=== PATIENT | male | born 1975 | race Hispanic/Latino ===

== ENCOUNTER 2017-01-07 10:28 | Emergency (ER) | payer BC, OTHER ==
--- NOTE | 2017-01-07 12:56 | Emergency Department Report ---
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 - Exam Vital Signs: Vital Signs 01/07/17 10:44 Temperature 97.7 F Pulse Rate 106 H Respiratory 18 Rate Blood Pressure 151/99 O2 Sat by Pulse 96 Oximetry Physical Exam: GENERAL: The patient is well-developed and well-nourished. Patient is in NAD. HENT: Normocephalic. Atraumatic. Patient has moist mucous membranes. Throat: No erythema, swelling or exudates. Ears:Tympanic membranes pearly ys ,intact , and free of exudate and erythema . EYES: Extraocular motions are intact, PERRL NECK: Supple. No meningitic signs are noted. There is no adenopathy noted. CHEST/LUNGS: Clear to auscultation bilaterally. No wheezing, rales or rhonchi noted. There is no respiratory distress noted. HEART/CARDIOVASCULAR: Regular rate and rhythm. Normal S1 S2. No murmurs, rubs , clicks, or gallops. ABDOMEN: Abdomen is soft, nontender.. Bowel sounds normoactive. There is no abdominal distention. Negative rebound tenderness. : Deferred. SKIN: There is no rash. There is no edema. There is no diaphoresis.Normal skin turgor NEURO: The patient is A&Ox3. The patient has no focal neurologic deficits. MUSCULOSKELETAL: There is no tenderness or deformity. There is no limitation range of motion. posture erect.Spine aligned,no deformities. PSYCH: Pt has appropriate mood and affect. MSE screening note: Focused history and physical exam performed. Due to findings the following was ordered: ED Medical Decision Making - Medical Decision Making low back pain pt was evaluate by primary care doctor and told had pinch nerve to lower back x 5 days pt will follow with primary care in the am ED Disposition for MSE Clinical Impression: Low back pain Qualifiers: Chronicity: acute Back pain laterality: bilateral Sciatica presence: without sciatica Qualified Code(s): M54.5 - Low back pain Is pt being admited?: No Does the pt Need Aspirin: No Condition: Stable Instructions: Lumbar Radiculopathy (ED) Additional Instructions: follow up with primary care doctor on 01/08/2017 Prescriptions: HYDROcodone/APAP 10-325 [[place] 10/325] 1 each PO Q6HR PRN #10 tablet PRN Reason: Pain Referrals: ARACELI MCDONOUGH MD [Primary Care Provider] - 3-5 Days Time of Disposition: 13:00
[2017-01-07 13:13] VITALS: BP 150/92
== END 2017-01-07 13:12 | disposition home or self-care (01) ==
LOC: ED 10:28
DX: M54.5 Low back pain (principal)
CPT/HCPCS: 99282

== ENCOUNTER 2017-01-12 13:39 | Outpatient (CLI) | payer OTHER | END 2017-01-12 13:40 | disposition home or self-care (01) | LOC: LABHHL 13:39 | PROVIDERS: ATTEND Neurological Surgery | DX: M51.26 Other intervertebral disc displacement, lumbar region (principal) | CPT/HCPCS: 88304 ==

== ENCOUNTER 2018-02-14 18:36 | Emergency (ER) | payer OTHER ==
[2018-02-14] MEDS ORDERED: DECADRON IM ONE (21:04)
--- NOTE | 2018-02-14 21:10 | Emergency Department Report ---
ED Back Pain/Injury HPI - General Chief Complaint: Back Pain/Injury Stated Complaint: BACK PAIN CAN'T FEEL LEFT LEG Time Seen by Provider: 02/14/18 21:04 Source: patient Limitations: No Limitations - History of Present Illness MD Complaint: back pain -: Gradual, week(s) (several ) Similar Symptoms Previously: Yes Place: home Radiation: left leg Severity: severe Severity scale (0 -10): 8 Quality: aching Consistency: constant Improves With: none Worsens With: sitting upright Context: turning/twisting Associated Symptoms: denies other symptoms Treatments Prior to Arrival: acetaminophen, prescription analgesics - Related Data Previous Rx's Medication Instructions Recorded Last Taken Type HYDROcodone/APAP 5-325 [[place] 1 each PO Q6HR PRN #14 tablet 10/01/14 Unknown Rx 5-325 mg TAB] Ibuprofen [Motrin 800 MG tab] 800 mg PO TID PRN #20 tablet 10/01/14 Unknown Rx Azithromycin [Zithromax Z-MITZI] 250 mg PO DAILY #6 tablet 01/04/15 Unknown Rx Ciprofloxacin HCl [Cipro] 500 mg PO Q12H #20 tab 01/04/15 Unknown Rx Promethazine /Codeine 5 ml PO Q6H PRN #120 ml 01/04/15 Unknown Rx [Phenergan/Codeine 6.25-10 mg/5 ml] Phenazopyridine [Pyridium] 100 mg PO TID #6 tab 08/05/15 Unknown Rx HYDROcodone/APAP 10-325 [[place] 1 each PO Q6HR PRN #10 tablet 01/07/17 Unknown Rx 10/325] Lidocaine [Lidoderm] 1 each TP Q12HR PRN #12 adh..patch 02/14/18 Unknown Rx Allergies Allergy/AdvReac Type Severity Reaction Status Date / Time Penicillins Allergy Seizure Verified 05/10/14 21:51 ED Review of Systems ROS: Stated complaint: BACK PAIN CAN'T FEEL LEFT LEG Other details as noted in HPI Constitutional: denies: chills, fever Eyes: denies: eye pain, eye discharge, vision change ENT: denies: ear pain, throat pain Respiratory: denies: cough, shortness of breath, wheezing Cardiovascular: denies: chest pain, palpitations Endocrine: no symptoms reported Gastrointestinal: denies: abdominal pain, nausea, diarrhea Genitourinary: denies: urgency, dysuria Musculoskeletal: back pain. denies: joint swelling, arthralgia Skin: denies: rash, lesions Neurological: denies: headache, weakness, paresthesias Psychiatric: denies: anxiety, depression Hematological/Lymphatic: denies: easy bleeding, easy bruising ED Past Medical Hx - Past Medical History Hx Hypertension: Yes Additional medical history: chronic back pain/sciatica - Surgical History Additional Surgical History: Knee and hand surgery. hernia repair///back surg - Social History Smoking Status: Never Smoker Substance Use Type: None - Medications Home Medications: Home Medications Medication Instructions Recorded Confirmed Last Taken Type HYDROcodone/APAP 5-325 [[place] 1 each PO Q6HR PRN #14 tablet 10/01/14 Unknown Rx 5-325 mg TAB] Ibuprofen [Motrin 800 MG tab] 800 mg PO TID PRN #20 tablet 10/01/14 Unknown Rx Azithromycin [Zithromax Z-MITZI] 250 mg PO DAILY #6 tablet 01/04/15 Unknown Rx Ciprofloxacin HCl [Cipro] 500 mg PO Q12H #20 tab 01/04/15 Unknown Rx Promethazine /Codeine 5 ml PO Q6H PRN #120 ml 01/04/15 Unknown Rx [Phenergan/Codeine 6.25-10 mg/5 ml] Phenazopyridine [Pyridium] 100 mg PO TID #6 tab 08/05/15 Unknown Rx HYDROcodone/APAP 10-325 [[place] 1 each PO Q6HR PRN #10 tablet 01/07/17 Unknown Rx 10/325] Lidocaine [Lidoderm] 1 each TP Q12HR PRN #12 adh..patch 02/14/18 Unknown Rx ED Physical Exam - General Limitations: No Limitations General appearance: alert, in no apparent distress - Head Head exam: Present: atraumatic, normocephalic - Eye Eye exam: Present: normal appearance - ENT ENT exam: Present: mucous membranes moist - Neck Neck exam: Present: normal inspection - Respiratory Respiratory exam: Present: normal lung sounds bilaterally. Absent: respiratory distress - Cardiovascular Cardiovascular Exam: Present: regular rate, normal rhythm. Absent: systolic murmur, diastolic murmur, rubs, gallop - GI/Abdominal GI/Abdominal exam: Present: soft, normal bowel sounds - Rectal Rectal exam: Present: deferred - Extremities Exam Extremities exam: Present: normal inspection - Back Exam Back exam: Present: tenderness - Neurological Exam Neurological exam: Present: alert, oriented X3 - Psychiatric Psychiatric exam: Present: normal affect, normal mood - Skin Skin exam: Present: warm, dry, intact, normal color. Absent: rash ED Course Vital Signs 02/14/18 18:41 Temperature 98 F Pulse Rate 89 Respiratory 18 Rate Blood Pressure 136/88 O2 Sat by Pulse 100 Oximetry ED Medical Decision Making - Medical Decision Making Cdx: Lumbar sacral strain ddx: Slipped disk, spinal canal stenosis I will give pt IM shot of decadron and I will give pt rx for lidocaine patches and will have pt f/u with his PCP. Additional verbal discharge instructions were given. Patient agrees with discharge. Critical care attestation.: If time is entered above; I have spent that time in minutes in the direct care of this critically ill patient, excluding procedure time. ED Disposition Clinical Impression: Lower back pain Qualifiers: Chronicity: chronic Back pain laterality: midline Sciatica presence: with sciatica Sciatica laterality: sciatica of left side Qualified Code(s): M54.42 - Lumbago with sciatica, left side; G89.29 - Other chronic pain Disposition: DC-01 TO HOME OR SELFCARE Is pt being admited?: No Does the pt Need Aspirin: No Condition: Stable Instructions: Low Back Strain (ED), Lumbar Radiculopathy (ED) Prescriptions: Lidocaine [Lidoderm] 1 each TP Q12HR PRN #12 adh..patch PRN Reason: Pain Referrals: PRIMARY CARE,MD [Primary Care Provider] - 3-5 Days
[2018-02-15 00:16] VITALS: BP 132/86
== END 2018-02-14 21:29 | disposition home or self-care (01) ==
LOC: ED 18:36
DX: M54.42 Lumbago with sciatica, left side (principal); G89.29 Other chronic pain
CPT/HCPCS: 96372; 99282; J1100

== ENCOUNTER 2021-04-06 12:32 | Emergency (ER) | payer OTHER ==
--- NOTE | 2021-04-06 13:17 | Event Note ---
ED Screening Note Date of service: 04/06/21 Time: 13:15 ED Screening Note: 45-year-old male patient with recent history of diverticulitis presents to the emergency department with complaints of chest pain, shortness of breath, and melena. Patient was recently hospitalized for perforated diverticulitis. He did not undergo operative intervention. Today was the first day he noticed black stools since his hospitalization, prompting him to return to the emergency department. He is not anticoagulated. Chest pain and shortness of breath began after his hospital admission. Chest pain is worse with deep inhalation. No prior history of venous thromboembolism. General: Awake, appropriately interactive, no acute distress. Neck: Supple. Full range of motion intact. Cardiovascular: Normal peripheral perfusion. Pulmonary: No respiratory distress. Patient is speaking normally without use of accessory muscles. Skin: No apparent rashes or lesions. Neurological: No facial asymmetry. Speech is clear. Follows commands. Patient is alert and oriented. Musculoskeletal: Moves all four extremities spontaneously with normal range of motion. Psych: Cooperative. Appropriate mood and affect. Initial labs ordered; decision to pursue further diagnostic work-up (i.e. imaging studies) deferred to additional ED providers. I have greeted and performed a focused rapid initial assessment of this patient. A comprehensive ED assessment and evaluation of the patient, analysis of all test results, and completion of the medical decision-making process will be conducted by additional ED providers. This initial assessment/diagnostic orders/clinical plan/treatment(s) is/are subject to change based on patients health status, clinical progression and re-assessment. Further treatment and workup at subsequent clinical provider's discretion. Patient/guardian urged not to elope from the ED as their condition may be serious if not clinically assessed and managed.
[2021-04-06 13:39] LABS: Alanine Aminotransferase 15 units/L (7-56); Albumin 4.6 g/dL (3.9-5); BUN/Creatinine Ratio 13; Blood Urea Nitrogen 12 mg/dL (9-20); Calcium 9.7 mg/dL (8.4-10.2); Hemolysis Index 8
--- NOTE | 2021-04-06 13:43 | XRay Report ---
XR chest routine 2V INDICATION / CLINICAL INFORMATION: chest pain/SOB. COMPARISON: None available. FINDINGS: SUPPORT DEVICES: None. HEART /PULMONARY VASCULATURE: No significant abnormality. LUNGS / PLEURA: No significant pulmonary or pleural abnormality. No pneumothorax. ADDITIONAL FINDINGS: No significant additional findings. IMPRESSION: 1. No acute findings. Signer Name: Evan Garcia MD Signed: 04/06/2021 1:38 PM Workstation Name: [id number]
[2021-04-06 13:44] LABS: Basophils % (Auto) 0.4 % (0.0-1.8); Eosinophils # (Auto) 0.1 K/mm3 (0.0-0.4); Eosinophils % (Auto) 1.3 % (0.0-4.3); Hematocrit 46.4 % (35.5-45.6); Hemoglobin 15.9 gm/dl (11.8-15.2); Lymphocytes # (Auto) 2.4 K/mm3 (1.2-5.4); Lymphocytes % (Auto) 41.4 % (13.4-35.0); Mean Corpuscular HGB Conc 34 % (32-34); Mean Corpuscular Volume 90 fl (84-94); Monocytes # (Auto) 0.6 K/mm3 (0.0-0.8); Monocytes % (Auto) 10.6 % (0.0-7.3); Platelet Count 300 K/mm3 (140-440); Red Blood Count 5.14 M/mm3 (3.65-5.03); Red Cell Distribution Width 13.7 % (13.2-15.2)
[2021-04-06 13:45] LABS: Bilirubin,Urine NEG (Negative); Blood,Urine NEG (Negative); Color,Urine Yellow (Yellow); Protein,Urine <15 mg/dL mg/dL (Negative); Urobilinogen,Urine < 2.0 mg/dL (<2.0); WBC,Urine < 1.0 /HPF (0.0-6.0)
[2021-04-06 14:44] LABS: INR 1.03 (0.87-1.13)
[2021-04-06 14:45] LABS: Partial Thromboplastin Time 31.2 Sec. (24.2-36.6)
[2021-04-06] MEDS ORDERED: MORPHINE 2 MG/1 ML INJ IV ONE (15:25)
[2021-04-06] MEDS ORDERED: LACTATED RINGERS 1,000 ML IV ONE (15:25)
[2021-04-06] MEDS ORDERED: FAMOTIDINE 20 MG/2 ML INJ IV ONE (15:25)
--- NOTE | 2021-04-06 15:26 | Emergency Department Report ---
<RAH CALLOWAY - Last Filed: 04/06/21 21:37> ED General Adult HPI - General Chief complaint: Abdominal Pain Stated complaint: BLACK STOOL/SOB/PAIN IN CHEST AREA Time Seen by Provider: 04/06/21 13:59 - Related Data Previous Rx's Medication Instructions Recorded Last Taken Type Promethazine /Codeine 5 ml PO Q6H PRN #120 ml 01/04/15 Unknown Rx [Phenergan/Codeine 6.25-10 mg/5 ml] Phenazopyridine [Pyridium] 100 mg PO TID #6 tab 08/05/15 Unknown Rx Ciprofloxacin HCl [Ciprofloxacin 750 mg PO DAILY #5 tablet 03/17/21 Unknown Rx TAB] metroNIDAZOLE [Flagyl] 500 mg PO Q8HR #14 tablet 03/17/21 Unknown Rx Allergies Allergy/AdvReac Type Severity Reaction Status Date / Time Penicillins Allergy Seizure Verified 05/10/14 21:51 ED Past Medical Hx - Medications Home Medications: Home Medications Medication Instructions Recorded Confirmed Last Taken Type Promethazine /Codeine 5 ml PO Q6H PRN #120 ml 01/04/15 Unknown Rx [Phenergan/Codeine 6.25-10 mg/5 ml] Phenazopyridine [Pyridium] 100 mg PO TID #6 tab 08/05/15 Unknown Rx Ciprofloxacin HCl [Ciprofloxacin 750 mg PO DAILY #5 tablet 03/17/21 Unknown Rx TAB] metroNIDAZOLE [Flagyl] 500 mg PO Q8HR #14 tablet 03/17/21 Unknown Rx ED Medical Decision Making - Lab Data Result diagrams: 04/06/21 12:56 04/06/21 12:56 ED Disposition Clinical Impression: Lower abdominal pain, Nonspecific chest pain Disposition: DC-01 TO HOME OR SELFCARE Is pt being admited?: No Does the pt Need Aspirin: No Condition: Good Instructions: Nonspecific Chest Pain, Adult Additional Instructions: Do not take metformin medication for the next 2 days, if patient takes this medication. Do not take Motrin, ibuprofen, Naprosyn, Aleve, avoid consumption of alcohol, smoke products, heavy and spicy foods. Patient may take Tylenol [id number], 650 mg by mouth, every 4-6 hours as needed for pain, maximum daily dose of Tylenol to not exceed 3 g per 24 hours. Recommend the patient follow-up with a primary care doctor within the next week. Recommend that patient follow-up with a radiotelegraph operator within the next 3 days. Please have a primary care doctor contact medical records department to follow- up on nonemergent incidental findings, and to obtain copies of CT scan reports, and laboratory studies. For the patient's convenience, we have listed a number of local primary care doctors and/or cardiology groups. Please return to the emergency room right away with new pain, worsened pain, migration of pain, projectile vomiting, change in mental status, confusion, inability to tolerate liquid feeds, new, worsened or different symptoms not present on the initial emergency room evaluation. Referrals: LAUREN PERSON MD [Staff Physician] - 3-5 Days [facility] [Provider Group] - 3-5 Days [facility] [Provider Group] - 3-5 Days Forms: Work/School Release Form(ED) Time of Disposition: 21:38 <LEILA ADAMES - Last Filed: 04/07/21 17:26> ED General Adult HPI - General PUI?: No Source: patient, RN notes reviewed, old records reviewed Mode of arrival: Ambulatory Limitations: No Limitations - History of Present Illness Initial comments: The patient was evaluated in the emergency department for symptoms described in the history of present illness. He/she was evaluated in the context of the global COVID-19 pandemic, which necessitated consideration that the patient might be at risk for infection with the virus that causes COVID-19. Institutional protocols and algorithms that pertain to the evaluation of patients at risk for COVID-19 are in a state of rapid change based on information released by regulatory bodies including the CDC and federal and state organizations. These policies and algorithms were followed during the patient's care in the emergency department. Please note that these policies, procedures and recommendations changed on a rapid basis. During the history and physical examination, I am chaperoned by Ms. Felicitas Troy This is a 45-year-old gentleman. I have evaluated this patient in the past. I admitted this patient to the medical service recently for perforated sigmoid diverticulitis. It appears that he convalesced well. Today, the patient presents to the ER with a complaint of intermittent black stool, lower abdominal cramping, left-sided chest tightness and pressure, and i ntermittent shortness of breath. The patient denies headache, neck pain, vomiting, diaphoresis, hematemesis, bright red blood per rectum. He reports left-sided chest pressure does not radiate to the back, arms or neck, is intermittent, nonexertional, and not associate with vomiting or diaphoresis. Is been going on for a few days. He does not have exacerbating or relieving factors that he is aware of. No posterior leg pain or leg swelling. It sometimes gets worse with deep inspiration. He reports his lower abdominal pressure is most prominent in the suprapubic and right lower quadrant region, and occasionally radiates to his right testicle. He reports that he does not take vitamins containing compounds, and he does not take anticoagulants, or NSAIDs. Denies Covid symptomatology. -: Gradual, days(s) Location: chest, abdomen Radiation: non-radiation Quality: aching Consistency: intermittent Improves with: none Worsens with: none ED Review of Systems ROS: Stated complaint: BLACK STOOL/SOB/PAIN IN CHEST AREA Other details as noted in HPI Constitutional: denies: fever Eyes: denies: eye discharge ENT: denies: congestion Respiratory: shortness of breath. denies: cough Cardiovascular: chest pain Gastrointestinal: abdominal pain. denies: hematemesis, hematochezia Genitourinary: as per HPI, other (Testicular pressure). denies: dysuria Musculoskeletal: denies: myalgia Neurological: weakness ED Past Medical Hx - Past Medical History Hx Hypertension: Yes Hx Congestive Heart Failure: No Hx Diabetes: No Hx Asthma: No Hx COPD: No Additional medical history: chronic back pain/sciatica - Surgical History Additional Surgical History: Knee and hand surgery. hernia repair///back surg - Social History Smoking Status: Never Smoker Substance Use Type: None ED Physical Exam - General Limitations: No Limitations General appearance: alert, in no apparent distress - Head Head exam: Present: atraumatic, normocephalic - Eye Eye exam: Present: normal appearance, EOMI. Absent: nystagmus - ENT ENT exam: Present: normal exam, normal orophraynx, mucous membranes moist, normal external ear exam - Neck Neck exam: Present: normal inspection, full ROM. Absent: tenderness, meningismus - Respiratory Respiratory exam: Present: normal lung sounds bilaterally. Absent: respiratory distress, wheezes, rales, rhonchi, stridor, decreased breath sounds - Cardiovascular Cardiovascular Exam: Present: regular rate, normal rhythm, normal heart sounds. Absent: bradycardia, tachycardia, irregular rhythm, systolic murmur, diastolic murmur, rubs, gallop - GI/Abdominal GI/Abdominal exam: Present: soft, tenderness (Suprapubic and right lower quadrant tenderness). Absent: distended, guarding, rebound, rigid, pulsatile mass - Rectal Rectal exam: Present: normal inspection, normal rectal tone, heme (-) stool, other (Chaperoned by Claudia Troy). Absent: black stool, bloody stool, fecal impaction, hemorrhoids, mass - exam: Present: normal inspection, other (There is normal testicular lie. There is normal cremasteric reflex. There is no testicular tenderness. There is no testicular swelling). Absent: testicular tenderness External exam: Present: normal external exam - Extremities Exam Extremities exam: Present: normal inspection, full ROM, other (2+ pulses noted in the bilateral upper and lower extremities. There is no palpable cord. neg ative Homans sign. Muscular compartments are soft. The pelvis is stable.). Absent: pedal edema, calf tenderness - Back Exam Back exam: Present: normal inspection, full ROM. Absent: tenderness, CVA tenderness (R), CVA tenderness (L), paraspinal tenderness, vertebral tenderness - Neurological Exam Neurological exam: Present: alert, normal gait, other (No facial droop. Tongue midline. Extraocular movements intact bilaterally. Facial sensation intact to light touch in V1, V2, V3 distribution bilaterally. 5 and a 5 strength in 4 extremities. Sensation intact to light touch in 4 extremities.). Absent: motor sensory deficit - Psychiatric Psychiatric exam: Present: anxious - Skin Skin exam: Present: warm, dry, intact, normal color. Absent: rash ED Course Vital Signs 04/06/21 04/06/21 04/06/21 12:45 14:08 14:15 Temperature 98.2 F Pulse Rate 90 80 84 Respiratory 18 17 15 Rate Blood Pressure 146/93 167/105 O2 Sat by Pulse 99 99 Oximetry 04/06/21 04/06/21 04/06/21 14:31 14:45 15:01 Temperature Pulse Rate 67 72 74 Respiratory 21 16 17 Rate Blood Pressure 167/105 167/105 167/105 O2 Sat by Pulse Oximetry 04/06/21 04/06/21 04/06/21 15:15 15:31 15:45 Temperature Pulse Rate 70 69 66 Respiratory 17 14 15 Rate Blood Pressure 167/105 167/105 167/105 O2 Sat by Pulse Oximetry 04/06/21 04/06/21 04/06/21 16:01 16:15 16:31 Temperature Pulse Rate 68 78 84 Respiratory 19 9 L 15 Rate Blood Pressure 167/105 167/105 167/105 O2 Sat by Pulse Oximetry 04/06/21 04/06/21 04/06/21 16:45 16:47 17:01 Temperature Pulse Rate 76 66 Respiratory 15 18 11 L Rate Blood Pressure 167/105 155/98 O2 Sat by Pulse 99 100 Oximetry 04/06/21 04/06/21 04/06/21 17:15 17:31 17:45 Temperature Pulse Rate 73 66 66 Respiratory 13 18 19 Rate Blood Pressure 155/98 147/92 152/94 O2 Sat by Pulse 98 98 97 Oximetry 04/06/21 04/06/21 04/06/21 18:01 18:55 19:01 Temperature Pulse Rate 65 64 Respiratory 17 15 Rate Blood Pressure 157/94 157/94 145/85 O2 Sat by Pulse 96 100 98 Oximetry 04/06/21 19:19 Temperature 98.0 F Pulse Rate Respiratory Rate Blood Pressure O2 Sat by Pulse Oximetry - Reevaluation(s) Reevaluation #1: 04/06/21 17:52 Differential diagnosis, including but not limited to: GERD, gastritis, hiatal hernia, pneumonia, coronary artery disease, pulmonary embolism, colitis, diverticulitis, appendicitis, perforated viscus, GI bleed, constipation Assessment and plan: 45-year-old gentleman with multiple complaints. In terms of his complaint of abdominal pressure, pain, and black stool, he has suprapubic and right lower quadrant tenderness, normal genitourinary exam, brown stool that is guaiac negative on my exam, hemoglobin, hematocrit stable. We will treat his pain, and obtain CT scan of the abdomen pelvis to assess for interval change when compared to prior. However, his abdomen is much softer and much more benign than on his prior evaluation and examination. In terms of his chest pain, EKG unremarkable, troponin negative x1, symptoms present for days, therefore, as per the [employer] clinical policy, acute myocardial infarction is excluded. Given juxtaposition of chest pressure, abdominal discomfort, recent hospitalization, we will obtain CT scan of the chest/angiogram of the chest to exclude pulmonary embolism/pneumonia/aortic disease. His negative D-dimer is reviewed and appreciated, however, with his multiple complaints, concomitant chest pain and abdominal pain, it is my opinion that this patient requires advanced imaging. We will treat his symptoms, and reassess after initial data points. Reevaluation #2: 04/06/21 19:57 Vital signs unremarkable. Patient resting comfortably in stretcher, and in no acute distress. Care is transferred to the oncoming ER physician, Dr. Calloway, to follow-up on CT scan chest, abdomen pelvis, and arrange for final disposition. If no acute findings noted, patient suitable to be discharged to follow-up with outpatient primary care. ED Medical Decision Making - Lab Data Result diagrams: 04/06/21 12:56 04/06/21 12:56 Vital Signs 04/06/21 12:45 Temperature 98.2 F Pulse Rate 90 Respiratory 18 Rate Blood Pressure 146/93 O2 Sat by Pulse 99 Oximetry Lab Results 04/06/21 04/06/21 04/06/21 Range/Units 12:56 12:56 13:01 WBC 5.7 (4.5-11.0) K/mm3 RBC 5.14 H (3.65-5.03) M/mm3 Hgb 15.9 H (11.8-15.2) gm/dl Hct 46.4 H (35.5-45.6) % MCV 90 (84-94) fl MCH 31 (28-32) pg MCHC 34 (32-34) % RDW 13.7 (13.2-15.2) % Plt Count 300 (140-440) K/mm3 Lymph % (Auto) 41.4 H (13.4-35.0) % [place] % (Auto) 10.6 H (0.0-7.3) % Eos % (Auto) 1.3 (0.0-4.3) % Baso % (Auto) 0.4 (0.0-1.8) % Lymph # (Auto) 2.4 (1.2-5.4) K/mm3 [place] # (Auto) 0.6 (0.0-0.8) K/mm3 Eos # (Auto) 0.1 (0.0-0.4) K/mm3 Baso # (Auto) 0.0 (0.0-0.1) K/mm3 Seg Neutrophils % 46.3 (40.0-70.0) % Seg Neutrophils # 2.6 (1.8-7.7) K/mm3 PT (12.2-14.9) Sec. INR (0.87-1.13) APTT (24.2-36.6) Sec. D-Dimer (0-234) ng/mlDDU Sodium 138 (137-145) mmol/L Potassium 4.9 (3.6-5.0) mmol/L Chloride 100.5 (98-107) mmol/L Carbon Dioxide 30 (22-30) mmol/L Anion Gap 12 mmol/L BUN 12 (9-20) mg/dL Creatinine 0.9 (0.8-1.3) mg/dL Estimated GFR > 60 ml/min BUN/Creatinine Ratio 13 % Glucose 87 (75-100) mg/dL Calcium 9.7 (8.4-10.2) mg/dL Magnesium (1.7-2.3) mg/dL Total Bilirubin 1.20 (0.1-1.2) mg/dL AST 19 (5-40) units/L ALT 15 (7-56) units/L Alkaline Phosphatase 74 (35-129) units/L Troponin T (0.00-0.029) ng/mL Total Protein 7.1 (6.3-8.2) g/dL Albumin 4.6 (3.9-5) g/dL Albumin/Globulin Ratio 1.8 % Lipase (13-60) units/L Urine Color Yellow (Yellow) Urine Turbidity Clear (Clear) Urine pH 6.0 (5.0-7.0) Ur Specific [place] 1.021 (1.003-1.030) Urine Protein <15 mg/dl (Negative) mg/dL Urine Glucose (UA) Neg (Negative) mg/dL Urine Ketones Neg (Negative) mg/dL Urine Blood Neg (Negative) Urine Nitrite Neg (Negative) Urine Bilirubin Neg (Negative) Urine Urobilinogen < 2.0 (<2.0) mg/dL Ur Leukocyte Esterase Neg (Negative) Urine WBC (Auto) < 1.0 (0.0-6.0) /HPF Urine RBC (Auto) 2.0 (0.0-6.0) /HPF U Epithel Cells (Auto) 1.0 (0-13.0) /HPF Blood Type Antibody Screen 04/06/21 04/06/21 04/06/21 Range/Units 13:29 13:29 13:29 WBC (4.5-11.0) K/mm3 RBC (3.65-5.03) M/mm3 Hgb (11.8-15.2) gm/dl Hct (35.5-45.6) % MCV (84-94) fl MCH (28-32) pg MCHC (32-34) % RDW (13.2-15.2) % Plt Count (140-440) K/mm3 Lymph % (Auto) (13.4-35.0) % [place] % (Auto) (0.0-7.3) % Eos % (Auto) (0.0-4.3) % Baso % (Auto) (0.0-1.8) % Lymph # (Auto) (1.2-5.4) K/mm3 [place] # (Auto) (0.0-0.8) K/mm3 Eos # (Auto) (0.0-0.4) K/mm3 Baso # (Auto) (0.0-0.1) K/mm3 Seg Neutrophils % (40.0-70.0) % Seg Neutrophils # (1.8-7.7) K/mm3 PT 13.4 (12.2-14.9) Sec. INR 1.03 (0.87-1.13) APTT 31.2 (24.2-36.6) Sec. D-Dimer < 135.00 (0-234) ng/mlDDU Sodium (137-145) mmol/L Potassium (3.6-5.0) mmol/L Chloride (98-107) mmol/L Carbon Dioxide (22-30) mmol/L Anion Gap mmol/L BUN (9-20) mg/dL Creatinine (0.8-1.3) mg/dL Estimated GFR ml/min BUN/Creatinine Ratio % Glucose (75-100) mg/dL Calcium (8.4-10.2) mg/dL Magnesium 2.00 (1.7-2.3) mg/dL Total Bilirubin (0.1-1.2) mg/dL AST (5-40) units/L ALT (7-56) units/L Alkaline Phosphatase (35-129) units/L Troponin T < 0.010 (0.00-0.029) ng/mL Total Protein (6.3-8.2) g/dL Albumin (3.9-5) g/dL Albumin/Globulin Ratio % Lipase 22 (13-60) units/L Urine Color (Yellow) Urine Turbidity (Clear) Urine pH (5.0-7.0) Ur Specific [place] (1.003-1.030) Urine Protein (Negative) mg/dL Urine Glucose (UA) (Negative) mg/dL Urine Ketones (Negative) mg/dL Urine Blood (Negative) Urine Nitrite (Negative) Urine Bilirubin (Negative) Urine Urobilinogen (<2.0) mg/dL Ur Leukocyte Esterase (Negative) Urine WBC (Auto) (0.0-6.0) /HPF Urine RBC (Auto) (0.0-6.0) /HPF U Epithel Cells (Auto) (0-13.0) /HPF Blood Type Antibody Screen 04/06/21 Range/Units 13:33 WBC (4.5-11.0) K/mm3 RBC (3.65-5.03) M/mm3 Hgb (11.8-15.2) gm/dl Hct (35.5-45.6) % MCV (84-94) fl MCH (28-32) pg MCHC (32-34) % RDW (13.2-15.2) % Plt Count (140-440) K/mm3 Lymph % (Auto) (13.4-35.0) % [place] % (Auto) (0.0-7.3) % Eos % (Auto) (0.0-4.3) % Baso % (Auto) (0.0-1.8) % Lymph # (Auto) (1.2-5.4) K/mm3 [place] # (Auto) (0.0-0.8) K/mm3 Eos # (Auto) (0.0-0.4) K/mm3 Baso # (Auto) (0.0-0.1) K/mm3 Seg Neutrophils % (40.0-70.0) % Seg Neutrophils # (1.8-7.7) K/mm3 PT (12.2-14.9) Sec. INR (0.87-1.13) APTT (24.2-36.6) Sec. D-Dimer (0-234) ng/mlDDU Sodium (137-145) mmol/L Potassium (3.6-5.0) mmol/L Chloride (98-107) mmol/L Carbon Dioxide (22-30) mmol/L Anion Gap mmol/L BUN (9-20) mg/dL Creatinine (0.8-1.3) mg/dL Estimated GFR ml/min BUN/Creatinine Ratio % Glucose (75-100) mg/dL Calcium (8.4-10.2) mg/dL Magnesium (1.7-2.3) mg/dL Total Bilirubin (0.1-1.2) mg/dL AST (5-40) units/L ALT (7-56) units/L Alkaline Phosphatase (35-129) units/L Troponin T (0.00-0.029) ng/mL Total Protein (6.3-8.2) g/dL Albumin (3.9-5) g/dL Albumin/Globulin Ratio % Lipase (13-60) units/L Urine Color (Yellow) Urine Turbidity (Clear) Urine pH (5.0-7.0) Ur Specific [place] (1.003-1.030) Urine Protein (Negative) mg/dL Urine Glucose (UA) (Negative) mg/dL Urine Ketones (Negative) mg/dL Urine Blood (Negative) Urine Nitrite (Negative) Urine Bilirubin (Negative) Urine Urobilinogen (<2.0) mg/dL Ur Leukocyte Esterase (Negative) Urine WBC (Auto) (0.0-6.0) /HPF Urine RBC (Auto) (0.0-6.0) /HPF U Epithel Cells (Auto) (0-13.0) /HPF Blood Type O POSITIVE Antibody Screen Negative - EKG Data -: EKG Interpreted by [place] EKG shows normal: sinus rhythm Rate: normal - EKG Data When compared to previous EKG there are: previous EKG unavailable 04/06/21 17:48 EKG interpreted at 14: 38 Sinus rhythm, 74 bpm. Normal axis, normal intervals, incomplete right bundle branch block. Not a STEMI. There is no prior for comparison. - Radiology Data Radiology results: report reviewed, image reviewed [facility] [address] [place] [address] XRay Report Signed Patient: BRENTON DE LEON MR#: [id number] : 1975 Acct:[id number] Age/Sex: 45 / M ADM Date: 04/06/21 Loc: ED Attending Dr: Ordering Physician: RADHA KUHN Date of Service: 04/06/21 Procedure(s): XR chest routine 2V Accession Number(s): [id number] cc: RADHA KUHN Fluoro Time In Minutes: XR chest routine 2V INDICATION / CLINICAL INFORMATION: chest pain/SOB. COMPARISON: None available. FINDINGS: SUPPORT DEVICES: None. HEART /PULMONARY VASCULATURE: No significant abnormality. LUNGS / PLEURA: No significant pulmonary or pleural abnormality. No pneumothorax. ADDITIONAL FINDINGS: No significant additional findings. IMPRESSION: 1. No acute findings. Signer Name: Nhan Garcia MD Signed: 04/06/2021 1:38 PM Workstati on Name: [id number] Transcribed By: JS Dictated By: NHAN GARCIA MD Electronically Authenticated By: NHAN GARCIA MD Signed Date/Time: 04/06/211337 DD/ [facility] [address] [place] [address] Cat Scan Report Signed Patient: BRENTON DE LEON MR#: [id number] : 1975 Acct:[id number] Age/Sex: 45 / M ADM Date: 04/06/21 Loc: ED Attending Dr: Ordering Physician: LEILA ADAMES MD Date of Service: 04/06/21 Procedure(s): CT angio chest Accession Number(s): [id number] cc: LEILA ADAMES MD CT angio chest INDICATION / CLINICAL INFORMATION: acute pleuritic cp. TECHNIQUE: Axial CT images were obtained after injection of 125 cc of Omnipaque 350 IV contrast using CTA protocol. 3 plane MIP / 3D reconstructions were produced. All CT scans at this location are performe d using CT dose reduction for ALARA by means of automated exposure control. COMPARISON: None available. FINDINGS: A suboptimal bolus was obtained. No definite filling defects are seen in the main pulmonary arteries or their branches. No significant parenchymal abnormality is seen in the lungs. No enlarged mediastinal or hilar lymph nodes are identified. No significant skeletal abnormality is present. IMPRESSION: Suboptimal bolus without definite evidence of pulmonary embolus. Signer Name: Royal De La Torre MD FACR Signed: 04/06/2021 8:02 PM Workstation Name: [id number] Transcribed By: MS Dictated By: Royal De La Torre MD Electronically Authenticated By: Royal De La Torre MD Signed Date/Time: 04/06/212001 DD/ 58 [facility] [address] [place] [address] Cat Scan Report Signed Patient: BRENTON DE LEON MR#: [id number] : 1975 Acct:[id number] Age/Sex: 45 / M ADM Date: 04/06/21 Loc: ED Attending Dr: Ordering Physician: LEILA ADAMES MD Date of Service: 04/06/21 Procedure(s): CT abdomen pelvis w con Accession Number(s): [id number] cc: LEILA ADAMES MD CT abdomen pelvis w con INDICATION / CLINICAL INFORMATION: acute lower abd pain. TECHNIQUE: All CT scans at this location are performed using CT dose reduction for ALARA by means of automated exposure control. COMPARISON: None available. FINDINGS: No free fluid is seen in the abdomen. The liver, spleen, kidneys, pancreas, adrenal glands and great vessels are normal. No enlarged mesenteric or retroperitoneal lymph nodes are seen. In the pelvis, no free fluid is seen. Mild changes of diverticulosis are present. No enlarged lymph nodes are identified. The bladder and the appendix are normal. No significant skeletal abnormality is present. IMPRESSION: 1. Mild changes of diverticulosis 2. No acute findings Signer Name: Royal De La Torre MD FACR Signed: 04/06/2021 8:03 PM Workstation Name: [id number] Transcribed By: MS Dictated By: Royal De La Torre MD Electronically Authenticated By: Royal De La Torre MD Signed Date/Time: 04/06/212002 DD/ 01 Critical care attestation.: If time is entered above; I have spent that time in minutes in the direct care of this critically ill patient, excluding procedure time. ED Disposition Is pt being admited?: No Does the pt Need Aspirin: No Heart Score - HEART Score History: Slightly suspicious EKG: Non-specific Age: < 45 Risk factors: 1-2 risk factors Troponin: < normal limit HEART Score: 2 - EKG Read Time Time EKG Completed: 14:34 EKG Read Time: 14:34 - Critical Actions Critical Actions: 0-3 pts:0.9-1.7%risk of adverse cardiac event.Candidate for discharge
[2021-04-06 19:11] VITALS: BP 145/85
--- NOTE | 2021-04-06 20:06 | Cat Scan Report ---
CT angio chest INDICATION / CLINICAL INFORMATION: acute pleuritic cp. TECHNIQUE: Axial CT images were obtained after injection of 125 cc of Omnipaque 350 IV contrast using CTA protoc ol. 3 plane MIP / 3D reconstructions were produced. All CT scans at this location are performed using CT dose reduction for ALARA by means of automated exposure control. COMPARISON: None available. FINDINGS: A suboptimal bolus was obtained. No definite filling defects are seen in the main pulmonary arteries or their branches. No significant parenchymal abnormality is seen in the lungs. No enlarged mediastin al or hilar lymph nodes are identified. No significant skeletal abnormality is present. IMPRESSION: Suboptimal bolus without definite evidence of pulmonary embolus. Signer Name: Royal De La Torre MD FACR Signed: 04/06/2021 8:02 PM Workstation Name: [id number]
--- NOTE | 2021-04-06 20:07 | Cat Scan Report ---
CT abdomen pelvis w con INDICATION / CLINICAL INFORMATION: acute lower abd pain. TECHNIQUE: All CT scans at this location are performed using CT dose reduction for ALARA by means of automated e xposure control. COMPARISON: None available. FINDINGS: No free fluid is seen in the abdomen. The liver, spleen, kidneys, pancreas, adrenal glands and great vessels are normal. No enlarged mesenteric or retroperitoneal lymph nodes are seen. In the pelvis, no free fluid is seen. Mild changes of diverticulosis are present. No enlarged lymph n odes are identified. The bladder and the appendix are normal. No significant skeletal abnormality is present. IMPRESSION: 1. Mild changes of diverticulosis 2. No acute findings Signer Name: Royal De La Torre MD FACR Signed: 04/06/2021 8:03 PM Workstation Name: [id number]
--- NOTE | 2021-04-07 10:54 | Electrocardiograph Report ---
[facility] Test Date: 2021-04-06 Test Time: 14:34:28 Pat Name: BRENTON DE LEON Department: Room: Gender: M Driver: : 1975 Requested By: LASHAWN NGUYEN Order Number: [id number] Reading MD: Hao Bautista Measurements Intervals [place] Rate: 74 P: 50 MN: 168 QRS: 30 QRSD: 94 T: 68 QT: 379 QTc: 421 Interpretive Statements Sinus rhythm No previous ECG available for comparison Electronically Signed On 04-07-2021 10:54:01 EDT by Hao Bautista
== END 2021-04-06 23:09 | disposition home or self-care (01) ==
LOC: ED 12:32
DX: R10.30 Lower abdominal pain, unspecified (principal); R07.89 Other chest pain; I10 Essential (primary) hypertension; Z98.890 Other specified postprocedural states; Z88.0 Allergy status to penicillin
CPT/HCPCS: 36415; 71046; 71275; 74177; 80053; 81001; 83690; 83735; 84484; 85025; 85379; 85610; 85730; 86850; 86900; 86901; 93005; 96361; 96374; 96375; J2270; J7120; Q9967

== ENCOUNTER 2022-07-12 21:02 | Emergency (ER) | payer SELFPAY ==
[2022-07-12 21:08] VITALS: BP 160/94
[2022-07-12 21:51] LABS: Color,Urine Yellow (Yellow)
[2022-07-12 21:54] LABS: RBC,Urine < 1.0 /HPF (0.0-6.0); WBC,Urine < 1.0 /HPF (0.0-6.0)
--- NOTE | 2022-07-13 09:56 | Electrocardiograph Report ---
[facility] Test Date: 2022-07-12 Test Time: 21:08:07 Pat Name: BRENTON DE LEON Department: Room: Gender: M [employer]ice: MAO : 1975 Requested By: CRISTOPHER DILLARD Order Number: [id number] Reading MD: Hao Bautista Measurements Intervals [place] Rate: 79 P: 56 MS: 151 QRS: 56 QRSD: 106 T: 56 QT: 368 QTc: 423 Interpretive Statements Sinus rhythm Compared to ECG 04/06/2021 14:34:28 No significant changes Electronically Signed On 07-13-2022 9:56:44 EDT by Hao Bautista
== END 2022-07-13 01:35 | disposition left against medical advice (07) ==
LOC: ED 21:02
DX: R07.9 Chest pain, unspecified (principal); Z53.21 Procedure and treatment not carried out due to patient leaving prior to being seen by health care provider
CPT/HCPCS: 81001; 93005